=== PATIENT | male | born 1970 | race Caucasian/White ===

== ENCOUNTER 2019-01-25 05:56 | Emergency (ER) | payer OTHER ==
--- NOTE | 2019-01-25 06:18 | ERPHSYRPT ---
- History of Present Illness Source: police Exam Limitations: clinical condition, intoxication Patient Subjective Stated Complaint: pt is alert and oriented. pt is ambulatory with an unsteady gait. pt brought in via policewoman for being intoxicated. pt denies pain. no difficulty breathing. no apparent distress. pt is slurring his words. Triage Nursing Assessment: see above Timing/Duration: today Hx Tetanus, Diphtheria Vaccination/Date Given: Yes Hx Influenza Vaccination/Date Given: No Immunizations Up to Date: Yes <JULIO ALMENDAREZ - Last Filed: 01/25/19 06:58> <SAFIA MADDEN - Last Filed: 01/25/19 07:35> - History of Present Illness Physician History: Pt was seen in the ED, after he was brought by the police. He is mumbling, and is not answering my questions. Pt could not give me any ROS, and could not tell me how much he drank today. (JULIO ALMENDAREZ) Allergies/Adverse Reactions: No Known Drug Allergies Allergy (Unverified 04/05/15 18:09) Home Medications: Aspirin [Aspirin EC] 81 mg PO DAILY 04/05/15 [History] Clonidine HCl 0.1 mg [Catapres 0.1 MG] 0.1 mg PO TID 04/05/15 [History] Duloxetine HCl [Cymbalta] 60 mg PO DAILY 04/05/15 [History] Hydrocodone/APAP 10/325 mg [[place] 10/325 MG Tablet] 1 tab PO TID PRN PRN 04/05/15 [History] Lisinopril 20 mg [Zestril 20 MG] 20 mg PO DAILY 04/05/15 [History] Simvastatin 20 mg PO HS 04/05/15 [History] - Review of Systems Constitutional: Other (Pt could not communicate, and could not give me any ROS.) Eyes: No Symptoms Ears, Nose, & Throat: No Symptoms Psychological: Alcohol Abuse, Drug Abuse <JULIO ALMENDAREZ - Last Filed: 01/25/19 06:58> - Past Medical History Pertinent Past Medical History: Yes Cardiac History: High Cholesterol, Hypertension Musculoskeletal History: Arthritis Other Medical History: 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, carpel tunnel, - Past Surgical History Past Surgical History: Yes Other Surgical History: cysts removed from back of head - Social History Smoking Status: Never smoker Exposure to second hand smoke: No Drug Use: none Patient Lives Alone: No <JULIO ALMENDAREZ - Last Filed: 01/25/19 06:58> - Physical Exam General Appearance: no apparent distress (Pt is confused, mumbling.) Eye Exam: PERRL/EOMI, eyes nml inspection Ears, Nose, Throat Exam: normal ENT inspection, TMs normal, pharynx normal, moist mucous membranes Neck Exam: normal inspection, non-tender, supple, full range of motion Respiratory Exam: normal breath sounds, lungs clear, No respiratory distress Cardiovascular Exam: regular rate/rhythm, normal heart sounds, normal peripheral pulses Gastrointestinal/Abdomen Exam: soft, normal bowel sounds, No tenderness, No mass Extremity Exam: normal inspection, normal range of motion, pelvis stable 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, disoriented, confusion, slurred speech Skin Exam: normal color, warm, dry, No rash SpO2: 96 <JULIO ALMENDAREZ - Last Filed: 01/25/19 06:58> - Nursing Vital Signs Nursing Vital Signs: Initial Vital Signs Temperature 97.3 F 01/25/19 05:58 Pulse Rate 78 01/25/19 05:58 Respiratory Rate 18 01/25/19 05:58 Blood Pressure 115/80 01/25/19 05:58 O2 Sat by Pulse Oximetry 96 01/25/19 05:58 Pain Scale Pain Intensity 0 - Course Nursing assessment & vital signs reviewed: Yes <JULIO ALMENDAREZ - Last Filed: 01/25/19 06:58> - Course Nursing assessment & vital signs reviewed: Yes <SAFIA MADDEN - Last Filed: 01/25/19 07:35> Ordered Tests: Active Orders 24 hr Category Date Time Status ETHYL ALCOHOL Stat Lab 01/25/19 06:05 Completed Urine Triage Profile Stat Lab 01/25/19 06:08 Completed Lab/Rad Data: Laboratory Results 01/25/19 01/25/19 Range/Units 06:08 06:05 Urine Opiates Level NEGATIVE (NEGATIVE) Ur Methadone NEGATIVE (NEGATIVE) Urine Barbiturates NEGATIVE (NEGATIVE) Ur Phencyclidine (PCP) NEGATIVE (NEGATIVE) Urine Amphetamine NEGATIVE (NEGATIVE) U Benzodiazepine Level POSITIVE (NEGATIVE) Urine Cocaine NEGATIVE (NEGATIVE) Urine Marijuana (THC) POSITIVE (NEGATIVE) Ethyl Alcohol 171 H (0-10) mg/dL - Progress Progress: unchanged <JULIO ALMENDAREZ - Last Filed: 01/25/19 06:58> <SAFIA MADDEN - Last Filed: 01/25/19 07:35> - Progress Progress Note: 01/25/19 06:18 UDS and ETOH levels were ordered. BG is normal. 01/25/19 06:58 Blood Alcohol level is 171. Waiting on UDS. Pt is transferred to the care of Dr Madden. (JULIO ALMENDAREZ) 01/25/19 07:28 48 year old white male brought by police for [facility] clearance. patient with positive ETOH 171 UDS positive for benzodaizepines Urine drug screen also positive for THC. Past medical history includes hypercholesterolemia, high blood pressure, arthritis, Martinez's cyst the knee, carpal tunnel, stent past surgical history includes cyst removed from the back of his head. Physical examination obese white male somewhat flushed in appearance. Patient with slurry speech but answering questions well full range of motion to all extremities. Head is atraumatic normocephalic. Eyes PERRLA EOMI fundi are unremarkable. Ears TMs bartlett intact bilaterally. Nose is clear. Throat is clear. Neck is supple full range of motion. Lungs are clear. Heart regular rate and rhythm without murmur. Abdomen soft nontender nondistended positive bowel sounds. Extremities full range of motion pulse equal symmetrical 2 over 4. Neuro patient alert oriented 3 cranial nerves II through XII are intact DTRs symmetrical 2 over 4 Darby Coma Scale 15 patient somewhat initially somnolent but arouses easily. Now asking questions nurses are able to get the patient up and around. EKG sinus rhythm 70 bpm normal axis no acute ST or T wave changes. Impression alcohol intoxication, Plan patient will be released to police custody, (SAFIA MADDEN) <JULIO ALMENDAREZ - Last Filed: 01/25/19 06:58> - Departure Departure Disposition: [facility] Critical Care Time: No <SAFIA MADDEN - Last Filed: 01/25/19 07:35> - Departure Clinical Impression: [facility] clearance Alcohol intoxication Qualifiers: Complication of substance-induced condition: uncomplicated Qualified Code(s): F10.920 - Alcohol use, unspecified with intoxication, uncomplicated Condition: Fair Referrals: SUMAN MALAGON [Primary Care Provider] - Additional Instructions: Return to home or [facility]. No driving. Follow-up with your family doctor or [facility] doctor if problems. Return for acute distress or for severe symptoms.
[2019-01-25 07:07] LABS: Amphetamine,Urine NEGATIVE (NEGATIVE); Barbiturate,Urine NEGATIVE (NEGATIVE); Benzodiazepine,Urine POSITIVE (NEGATIVE); Cocaine,Urine NEGATIVE (NEGATIVE); Methadone,Urine NEGATIVE (NEGATIVE); Opiate,Urine NEGATIVE (NEGATIVE); PCP,Urine NEGATIVE (NEGATIVE); THC,Urine POSITIVE (NEGATIVE)
[2019-01-25 07:10] VITALS: BP 118/70; PULSE 76; O2SAT 98
== END 2019-01-25 07:41 | disposition home or self-care (01) ==
LOC: ED 05:56
DX: Z02.89 Encounter for other administrative examinations (principal); F10.129 Alcohol abuse with intoxication, unspecified; E78.00 Pure hypercholesterolemia, unspecified; M19.90 Unspecified osteoarthritis, unspecified site
CPT/HCPCS: 36415; 80307; 82962; 93005; 99284; G0480

== ENCOUNTER 2023-12-18 15:27 | Emergency (ER) | payer SELFPAY ==
[2023-12-18 15:47] VITALS: BP 118/67; PULSE 62; RESP 18; TEMP 97.7; O2SAT 98
[2023-12-18 17:15] LABS: Appearance Clear (Clear); Bacteria None Seen /HPF (None Seen); Bilirubin Negative (Negative); Blood Negative (Negative); Epithelial Cells None Seen /HPF (None Seen); Glucose, Urine Negative (Negative); Ketones Negative (Negative); Leukocyte Esterase Negative (Negative); Nitrite Negative (Negative); Protein,Urine Dip Negative (Negative); RBC 0-2 /HPF (0-5); Specific Gravity <=1.005 (1.005-1.030); Urobilinogen 0.2 mg/dL (0.2); WBC 0-2 /HPF (0-5)
[2023-12-18 17:16] LABS: ADD URINE CULTURE? NO (NO); Hyaline Casts 0-2 /LPF (0-2)
[2023-12-18 17:17] LABS: Absolute Neutrophil Ct (ANC) 3.64 x10^3/uL (1.4-6.9); BASOPHIL % 1.8 % (0.0-0.4); Basophil (Absolute #) 0.11 x10^3/uL (0-0.4); Eosinophil % 7.4 % (0.00-5.0); Eosinophil (Absolute #) 0.46 x10^3/uL (0-0.5); Hematocrit 42.5 % (42-50); Hemoglobin 14.2 g/dL (12.5-18.0); IMMATURE GRAN # 0.03 x10^3u/L (0.00-0.03); IMMATURE GRAN % 0.5 % (0.00-0.4); Lymphocyte (Absolute #) 1.45 x10^3/uL (1.0-4.6); Lymphocytes % 23.5 % (24.0-44.0); Mean Cell Volume 95.3 fL (78-100); Mean Corpuscular Hemoglobin 31.8 pg (26-32); Mean Corpuscular Hgb Concent. 33.4 g/dL (32-36); Mean Platelet Volume 8.8 fL (7.5-11.0); Monocyte (Absolute #) 0.49 x10^3/uL (0.0-1.3); Monocytes % 7.9 % (0.0-12.0); Neutrophil % 58.9 % (36.0-66.0); Platelet Count 303 x10^3/uL (150-450); Red Blood Count 4.46 x10^6/uL (4.1-5.6); Red Cell Distribution Width 12.7 % (11.5-14.0); White Blood Count 6.2 x10^3/uL (4.0-10.5)
[2023-12-18 17:34] LABS: ALBUMIN 4.5 g/dL (3.5-5.0); ANION GAP 14.5 MEQ/L (5-15); BILIRUBIN,TOTAL 0.2 mg/dL (0.2-1.3); Calcium 9.6 mg/dL (8.4-10.2); Creatinine 1 0.88 mg/dL (0.66-1.25); EST GLOMERULAR FILTRATION RATE 101.6 ML/MIN; Potassium 4.4 mmol/L (3.5-5.1); Total Protein 7.4 g/dL (6.3-8.2)
[2023-12-18 17:34] LABS: Amphetamine,Urine NEGATIVE (NEGATIVE); Barbiturate,Urine NEGATIVE (NEGATIVE); Benzodiazepine,Urine POSITIVE (NEGATIVE); Cocaine,Urine NEGATIVE (NEGATIVE); Methadone,Urine NEGATIVE (NEGATIVE); Opiate,Urine POSITIVE (NEGATIVE); PCP,Urine NEGATIVE (NEGATIVE); THC,Urine NEGATIVE (NEGATIVE)
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
== END 2023-12-18 17:59 ==
LOC: ED 15:27
DX: Z02.89 Encounter for other administrative examinations (principal); F10.10 Alcohol abuse, uncomplicated; F19.20 Other psychoactive substance dependence, uncomplicated; Y90.3 Blood alcohol level of 60-79 mg/100 ml; E78.5 Hyperlipidemia, unspecified; I10 Essential (primary) hypertension; Z79.899 Other long term (current) drug therapy
CPT/HCPCS: 36415; 80053; 80307; 81001; 82077; 85025; 99282